=== PATIENT | female | born 1980 | race Caucasian/White ===

== ENCOUNTER 2022-09-21 07:39 | Outpatient (CLI) | payer OTHER ==
[2022-09-21 11:27] LABS: HCT - HEMATOCRIT 36.4 % (37.0-47.0); HGB - HEMOGLOBIN 11.5 g/dL (12.0-16.0); MEAN CORPUSCULAR HEMOGLOBIN 29.9 pg (27.0-31.0); MEAN CORPUSCULAR HGB CONC 31.6 g/dL (32.0-36.0); MEAN CORPUSCULAR VOLUME 94.5 fL (81.0-99.0); MEAN PLATELET VOLUME 10.2 fL (7.9-10.8); RED BLOOD COUNT 3.85 10^6/uL (4.20-5.40); RED CELL DISTRIBUTION WIDTH 13.7 % (12.0-15.0); WHITE BLOOD COUNT 8.6 x10^3/uL (4.8-10.8)
== END 2022-09-21 07:40 | disposition home or self-care (01) ==
LOC: LAB.N 07:39
PROVIDERS: ATTEND Nurse Practitioner
DX: Z87.19 Personal history of other diseases of the digestive system (principal)
CPT/HCPCS: 36415; 82239; 85027

== ENCOUNTER 2022-10-11 19:58 | Outpatient (CLI) | payer OTHER ==
--- NOTE | 2022-10-13 07:07 | Ultrasound Report ---
PROCEDURE: OB Detailed Eval INDICATIONS: ROUTINE OUTSIDE/PRIOR DATING DATA: Last menstrual period (LMP): Unsure. First dating scan (date and location): Outside in [place], 05/08/2022. Documentation is not available. TECHNIQUE: Real-time scanning was performed of the fetus, with image documentation and biometric measurements. COMPARISON: None FINDINGS: General: A single living intrauterine gestation is present. Presentation: Vertex Placenta: Placental position is posterior, without previa. Amniotic fluid index: 13.8 cm, within normal limits for gestational age. heart rate: 171 beats per minute. Maternal cervical canal: 5 cm long; normal length is 2.5 cm or more. biometrics: Biparietal diameter: 7.4 cm, 29 weeks and 6 days Head circumference: 27.7 cm, 30 weeks and 2 days Abdominal circumference: 25.1 cm, 29 weeks and 2 days Femur length: 5.5 cm, 29 weeks Estimated gestational age from initial scan: not applicable. Composite gestational age from present scan: 29 weeks and 3 days, estimated weight of 1380g Measurement variability in biometric dating: +/- 10 days from 12-20 weeks gestation, +/- 2 weeks from 20-30 weeks gestation, +/- 3 weeks at 30 weeks gestation or later. Anatomic survey: Neuro: Ventricles are normal at less than 10 mm. Cisterna magna is normal at 3-11 mm. Cerebellum is normal in size and morphology. Nuchal skin fold: Not applicable Face: Nose and lips, facial profile are normal. Spine: No evidence for spina bifida. Heart: 4-chambered heart is present, with normal ventricular outflow tracts. Diaphragm: Diaphragm is intact. Stomach: Left-sided stomach is present. Kidneys: No hydronephrosis. Normal is less than 5 mm in 2nd trimester, less than 7 mm in 3rd trimester. Cord: 3 vessel cord has orthotopic insertion. Bladder: Normal in size. Extremities: All 4 extremities are visualized. IMPRESSION: Single living intrauterine gestation. Please note first dating scan is outside of the country and rep ort is not available. biometry today measures 29 weeks and 3 days, 1380 g. Addendum with calcul ation of growth percentile could be made if a signed report is available in the future. Normal and complete anatomic survey. Reviewed by: Tremayne Mcbride MD on 10/12/2022 12:26 PM PDT Approved by: Termayne Mcbride MD on 10/12/2022 12:26 PM PDT Station ID: [id number]
== END 2022-10-11 19:59 | disposition home or self-care (01) ==
LOC: DI 19:58
PROVIDERS: ATTEND Nurse Practitioner
DX: Z34.03 Encounter for supervision of normal first pregnancy, third trimester (principal); Z36.89 Encounter for other specified antenatal screening

== ENCOUNTER 2022-10-25 14:00 | Outpatient (CLI) | payer OTHER ==
--- NOTE | 2022-10-25 15:27 | PROVIDER PROGRESS NOTE ---
- HPI Current : Current [facility] 01/05/23 Gestation 29 Weeks and 5 Days 2 Para 1 Vital Signs Temperature 98.1 F 10/25/22 14:15 Heart Rate 80 10/25/22 14:15 Respiratory Rate 16 10/25/22 14:15 Blood Pressure 111/66 10/25/22 14:15 Temperature 98.1 F 10/25/22 14:15 Heart Rate 80 10/25/22 14:15 Respiratory Rate 16 10/25/22 14:15 Blood Pressure 111/66 10/25/22 14:15 O2 Saturation If not protocol: Oxygen Flow, liters/minute - Procedures OB Procedure Performed: NST Diagnosis/Indication for NST: labor NST Procedure: NST Procedure Start Date 10/25/22 Start Time 14:12 Stop Time 14:42 Vibroacoustic Stimulation Used No Patient States Movement Yes Service Date of procedure: 10/25/22 (Read 10/25/22) Procedure Details: FHT: 140 bpm baseline, moderate variability, accelerations present, no decelerations. Reactive NST [place]: Rare - Plan Plan: Patient is a 42-year-old at 29 weeks 5 days gestation presenting to triage for cramping. She has good movement, no leaking, no vaginal bleeding. She denies headache, right upper quadrant pain, changes in vision. complicated by previous section. Physical Exam Constitutional: alert, no acute distress, well hydrated, well developed, well nourished, appropriate dress. Cardiovascular: Regular rate and rhythm. Respiratory: no respiratory distress. Abdomen: nondistended, nontender, no guarding. Psych: affect and mood appropriate, normal interaction, good eye contact. : Moderate thin white discharge. SVE: 0/0/-3 UA: Unremarkable Vaginitis panel: Unremarkable. Assessment and plan 42-year-old at 29 weeks 5 days gestation with cramping 1. Cramping -Rare contraction seen on tocometer. Cervix closed. Offered recheck, but patient declined. Encouraged low threshold for return if contractions worsened. 2. Vaginal discharge. -Negative vaginosis panel.
[2022-10-25 15:43] LABS: BILIRUBIN,URINE NEGATIVE (NEGATIVE); GLUCOSE, URINE (UA) NEGATIVE (NEGATIVE); KETONES,URINE (UA) NEGATIVE (NEGATIVE); LEUKOCYTE ESTERASE, URINE NEGATIVE (NEGATIVE); NITRITE,URINE NEGATIVE (NEGATIVE); OCCULT BLOOD,URINE NEGATIVE (NEGATIVE); PH,URINE 6.5 PH (5.0-7.5); PROTEIN,URINE NEGATIVE (NEGATIVE); UROBILINOGEN,URINE 1 (NORMAL) E.U./dL (NORMAL)
[2022-10-25 15:44] LABS: CLARITY,URINE CLEAR (CLEAR)
[2022-10-25 15:58] LABS: BACTERIA,URINE Few /HPF (None Seen); RBC,URINE None Seen /HPF (0-5); SQUAMOUS EPITHELIAL CELL,UR FEW Squamous (<= Few); WBC,URINE 0-3 /HPF (0-5)
[2022-10-25 16:39] VITALS: BP 106/60
[2022-10-25 17:02] LABS: BACTERIAL VAGINOSIS DNA NEGATIVE (NEGATIVE); CANDIDA KRUSEI DNA NEGATIVE (NEGATIVE)
[2022-10-25 17:03] LABS: CANDIDA GLABRATA DNA NEGATIVE (NEGATIVE); CANDIDA GROUP DNA NEGATIVE (NEGATIVE); TRICHOMONAS VAGINALIS DNA NEGATIVE (NEGATIVE)
== END 2022-10-25 16:30 | disposition home or self-care (01) ==
LOC: FBP 14:00 → UNDOADMOB 14:00 → WFO 14:00 → UNDODISOB 16:30 → WFO 16:30
PROVIDERS: ATTEND Obstetrics & Gynecology
DX: O99.891 Other specified diseases and conditions complicating pregnancy (principal); R10.9 Unspecified abdominal pain; N89.8 Other specified noninflammatory disorders of vagina; Z3A.29 29 weeks gestation of pregnancy
CPT/HCPCS: 59025; 81001; 81514; 87086; 99213; 99214

== ENCOUNTER 2022-11-13 07:13 | Outpatient (CLI) | payer OTHER | END 2022-11-13 07:14 | disposition home or self-care (01) | LOC: LAB.N 07:13 | PROVIDERS: ATTEND Nurse Practitioner | DX: O09.523 Supervision of elderly multigravida, third trimester (principal); O99.013 Anemia complicating pregnancy, third trimester; D64.9 Anemia, unspecified; Z36.89 Encounter for other specified antenatal screening | CPT/HCPCS: 36415; 82728; 82950; 86787; 86803; 86850 ==

== ENCOUNTER 2022-11-22 11:57 | Outpatient (CLI) | payer OTHER ==
[2022-11-22 12:37] LABS: ALBUMIN 3.2 g/dL (3.2-5.5); ALBUMIN/GLOBULIN RATIO 0.9 (1.0-2.2); BILIRUBIN,TOTAL 0.6 mg/dL (0.2-1.0); CALCIUM 8.8 mg/dL (8.5-10.3); CREATININE 0.5 mg/dL (0.4-1.0); POTASSIUM 3.6 mmol/L (3.5-5.0); TOTAL PROTEIN 6.6 g/dL (6.7-8.2)
[2022-11-23 06:10] LABS: HCV AB Non Reactive (Non Reactive)
== END 2022-11-22 11:58 | disposition home or self-care (01) ==
LOC: LAB 11:57
PROVIDERS: ATTEND Nurse Practitioner
DX: O09.523 Supervision of elderly multigravida, third trimester (principal); O26.893 Other specified pregnancy related conditions, third trimester; L29.9 Pruritus, unspecified
CPT/HCPCS: 36415; 80053; 82239; 86787; 86803; 86850

== ENCOUNTER 2022-11-27 13:53 | Outpatient (CLI) | payer OTHER ==
[2022-11-28 02:07] LABS: HBsAG SCREEN Negative (Negative); HCV AB Non Reactive (Non Reactive); HEPATITIS B CORE IGM AB Negative (Negative)
== END 2022-11-27 13:54 | disposition home or self-care (01) ==
LOC: LAB 13:53
PROVIDERS: ATTEND Obstetrics & Gynecology
DX: K83.1 Obstruction of bile duct (principal); R74.01 Elevation of levels of liver transaminase levels
CPT/HCPCS: 80074; 82239

== ENCOUNTER 2022-11-28 15:02 | Outpatient (CLI) | payer OTHER ==
[2022-11-28 15:20] VITALS: BP 110/70
[2022-11-28 15:38] LABS: ALBUMIN/GLOBULIN RATIO 0.9 (1.0-2.2); BILIRUBIN,TOTAL 0.6 mg/dL (0.2-1.0); CREATININE 0.5 mg/dL (0.4-1.0); POTASSIUM 3.9 mmol/L (3.5-5.0); TOTAL PROTEIN 6.2 g/dL (6.7-8.2)
--- NOTE | 2022-11-28 21:28 | PROCEDURE REPORT ---
- HPI Diagnosis/Indication for NST: Other (Cholestasis of ) Current EDU 01/05/23 Gestation 34 Weeks and 4 Days 2 Para 1 Vital Signs Temperature 97.9 F 11/28/22 15:16 Heart Rate 75 11/28/22 15:16 Respiratory Rate 16 11/28/22 15:16 Blood Pressure 110/70 11/28/22 15:16 O2 Saturation 100 11/28/22 15:16 Temperature 97.9 F 11/28/22 15:16 Heart Rate 75 11/28/22 15:16 Respiratory Rate 16 11/28/22 15:16 Blood Pressure 110/70 11/28/22 15:16 O2 Saturation 100 11/28/22 15:16 If not protocol: Oxygen Flow, liters/minute - NST Procedure NST Procedure Start Date 11/28/22 Start Time 15:13 Stop Time 17:10 Vibroacoustic Stimulation Used No Patient States Movement Yes EFM: 130s, moderate variability, positive 15x15 accelerations, no decelerations [place]: contractions q10m, not appreciated by patient NST reactive/Cat 1 Performed and read 11/28/22 - Results and Plan Plan: 42yo at 34.4w presenting for scheduled NST for cholestasis of - Dx last week 11/22/22. She did have cholestasis prior requiring delivery at 35w - LFTs also elevated - Continue NST 2x/w, follow up 3d - Repeat LFT and Bile acids next NST - Plan for betamethasone 1w if no improvement in LFTs - Discussed with MFM. Plan for delivery 36w if LFTs continue to worsen or earlier prn - Continue ursodiol 300mg TID
== END 2022-11-28 17:19 | disposition home or self-care (01) ==
LOC: WFO 15:02 → FBP 15:03 → WFO 17:19
PROVIDERS: ATTEND Obstetrics & Gynecology
DX: O26.613 Liver and biliary tract disorders in pregnancy, third trimester (principal); Z3A.34 34 weeks gestation of pregnancy
CPT/HCPCS: 36415; 59025; 80053; 99213

== ENCOUNTER 2022-12-01 08:09 | Outpatient (CLI) | payer OTHER ==
[2022-12-01 08:33] VITALS: BP 110/64
[2022-12-01 08:42] LABS: BASOPHILS % (AUTO) 0.2 %; EOSINOPHILS # (AUTO) 0.2 10^3/uL (0.0-0.7); EOSINOPHILS % (AUTO) 3.5 %; HCT - HEMATOCRIT 34.4 % (37.0-47.0); HGB - HEMOGLOBIN 11.5 g/dL (12.0-16.0); LYMPHOCYTES % (AUTO) 16.7 %; MEAN CORPUSCULAR HGB CONC 33.4 g/dL (32.0-36.0); MEAN CORPUSCULAR VOLUME 92.7 fL (81.0-99.0); MEAN PLATELET VOLUME 10.6 fL (7.9-10.8); MONOCYTES # (AUTO) 0.4 10^3/uL (0.0-1.0); MONOCYTES % (AUTO) 6.4 %; NEUTROPHILS # (AUTO) 4.5 10^3/uL (1.5-6.6); NEUTROPHILS % (AUTO) 72.7 %; PLT - PLATELET COUNT 217 10^3/uL (130-450); RED BLOOD COUNT 3.71 10^6/uL (4.20-5.40); RED CELL DISTRIBUTION WIDTH 13.2 % (12.0-15.0); WHITE BLOOD COUNT 6.2 x10^3/uL (4.8-10.8)
[2022-12-01 08:55] LABS: BILIRUBIN,TOTAL 0.8 mg/dL (0.2-1.0); CALCIUM 8.8 mg/dL (8.5-10.3); CREATININE 0.5 mg/dL (0.4-1.0); POTASSIUM 3.6 mmol/L (3.5-5.0); TOTAL PROTEIN 6.1 g/dL (6.7-8.2)
[2022-12-01 08:58] LABS: CREATININE,URINE 134.7 mg/dL; PROTEIN/CREATININE RATIO,URINE 0.1 (<=0.2)
[2022-12-01] MEDS ORDERED: BETAMETHASONE 30 MG/5 ML VIAL IM ONE (09:22)
--- NOTE | 2022-12-01 20:17 | PROCEDURE REPORT ---
- HPI Diagnosis/Indication for NST: Other (Cholestasis of ) Current EDU 01/05/23 Gestation 35 Weeks and 0 Days 2 Para 1 Vital Signs Temperature 97.9 F 12/01/22 08:30 Heart Rate 72 12/01/22 08:30 Respiratory Rate 14 12/01/22 08:30 Blood Pressure 110/64 12/01/22 08:30 Temperature 97.9 F 12/01/22 08:30 Heart Rate 72 12/01/22 08:30 Respiratory Rate 14 12/01/22 08:30 Blood Pressure 110/64 12/01/22 08:30 O2 Saturation If not protocol: Oxygen Flow, liters/minute - NST Procedure NST Procedure Start Date 12/01/22 Start Time 08:22 Stop Time 09:13 Vibroacoustic Stimulation Used No Patient States Movement Yes EFM: 150s, moderate variability, positive 15x15 accelerations, no decelerations [place]: occasional contractions NST reactive/Cat 1 Performed and read 12/01/22 - Results and Plan Plan: 42yo at 35w presents for scheduled NST for cholestasis of - NST reactive - PCR 0.1, no concurrent preeclampsia currently - LFTs stable AST 55(85) ALT 123(158) - Bile acids increased 11/22 116(21.6) - Reviewed with MFM, plan for delivery 36w - Continue ursodiol 300mg TID - Betamethasone now, second dose tomorrow
== END 2022-12-01 09:45 | disposition home or self-care (01) ==
LOC: WFO 08:09 → FBP 08:12 → WFO 09:45
PROVIDERS: ATTEND Obstetrics & Gynecology
DX: O26.613 Liver and biliary tract disorders in pregnancy, third trimester (principal); K83.1 Obstruction of bile duct; O09.523 Supervision of elderly multigravida, third trimester; Z3A.35 35 weeks gestation of pregnancy
CPT/HCPCS: 36415; 59025; 80053; 82239; 82570; 84156; 85025; 96372

== ENCOUNTER 2022-12-02 09:32 | Outpatient (CLI) | payer OTHER ==
[2022-12-02] MEDS ORDERED: BETAMETHASONE 30 MG/5 ML VIAL IM ONE (09:39)
[2022-12-02 09:56] VITALS: BP 112/74
--- NOTE | 2022-12-02 10:29 | PROCEDURE REPORT ---
- HPI Diagnosis/Indication for NST: Other Vital Signs Temperature 98.1 F 12/02/22 09:41 Heart Rate 71 12/02/22 09:41 Respiratory Rate 16 12/02/22 09:41 Blood Pressure 112/74 12/02/22 09:41 Temperature 98.1 F 12/02/22 09:41 Heart Rate 71 12/02/22 09:41 Respiratory Rate 16 12/02/22 09:41 Blood Pressure 112/74 12/02/22 09:41 O2 Saturation If not protocol: Oxygen Flow, liters/minute - NST Procedure NST Procedure Start Time 08:22 Stop Time 09:13 EFM: 150s, moderate variability, positive 15x15 accelerations, no decelerations [place]: no contractions NST reactive/Cat 1 Performed and read 12/02/22 - Results and Plan Plan: 42yo at 35w presents for scheduled NST and betamethasone IM for cholestasis of - NST reactive - Betamethasone second dose given today for planned RCD at 36w for cholestasis of - Continue ursodiol 300mg TID - Discharge to home, follow up NST 3d
== END 2022-12-02 10:40 | disposition home or self-care (01) ==
LOC: WFO 09:32 → FBP 09:33 → WFO 10:40
PROVIDERS: ATTEND Obstetrics & Gynecology
DX: O26.613 Liver and biliary tract disorders in pregnancy, third trimester (principal); K83.1 Obstruction of bile duct; O09.523 Supervision of elderly multigravida, third trimester; Z3A.35 35 weeks gestation of pregnancy
CPT/HCPCS: 59025; 96372

== ENCOUNTER 2022-12-05 10:33 | Outpatient (CLI) | payer OTHER ==
[2022-12-05 10:59] VITALS: BP 102/62
[2022-12-05 11:10] LABS: ALBUMIN 3.1 g/dL (3.2-5.5); BILIRUBIN,TOTAL 0.5 mg/dL (0.2-1.0); CREATININE 0.4 mg/dL (0.4-1.0); POTASSIUM 3.5 mmol/L (3.5-5.0); TOTAL PROTEIN 6.3 g/dL (6.7-8.2)
--- NOTE | 2022-12-05 13:14 | Ultrasound Report ---
PROCEDURE: OB Biophysical Profile INDICATIONS: non reactive NST OUTSIDE/PRIOR DATING DATA: Last menstrual period (LMP): Unknown. LMP-based estimated date of delivery (CONNOR): Unknown. First dating scan (date and location): 05/08/2022. Estimated date of delivery (CONNOR) from first dating scan: 01/05/2023. The below data below was generated using the working CONNOR of 01/05/2023 TECHNIQUE: Real-time scanning was performed of the fetus, with image documentation. Biophysical pro file was also obtained. Endovaginal scanning: Not indicated COMPARISON: 10/11/2022. FINDINGS: General: A single living intrauterine gestation is present. Presentation: Vertex Placenta: Placental position is posterior, without previa. Amniotic fluid index: 11.1 cm, normal for gestational age. heart rate: 145 beats per minute. Maternal cervical canal: 4.6 cm long; normal length is 2.5 cm or more. Estimated gestational age from initial scan: 35 weeks, 4 days.. Biophysical profile: Tone: 2 points. Movement: 2 points. Respiration: 2 points. Largest pocket of fluid: 2 points. Umbilical artery Doppler: 2.12, 2.22, 2.35 IMPRESSION: 1. Single live intrauterine gestation with fetus in vertex presentation. heart rate is 145 bpm. Normal amount of amniotic fluid. 2. biophysical profile score is 8 out of 8. 3. Normal umbilical artery S/D ratio. Reviewed by: Jono De Jesus MD on 12/05/2022 1:13 PM PDT Approved by: Jono De Jesus MD on 12/05/2022 1:13 PM PDT Station ID: [id number]
--- NOTE | 2022-12-05 14:37 | PROCEDURE REPORT ---
- HPI Diagnosis/Indication for NST: Other (Intrahepatic cholestasis of ) Current EDU 01/03/23 Gestation 35 Weeks and 6 Days 2 Para 1 Vital Signs Temperature 98.2 F 12/05/22 10:48 Heart Rate 68 12/05/22 10:48 Respiratory Rate 16 12/05/22 10:48 Blood Pressure 102/62 12/05/22 10:48 Temperature 98.2 F 12/05/22 10:48 Heart Rate 68 12/05/22 10:48 Respiratory Rate 16 12/05/22 10:48 Blood Pressure 102/62 12/05/22 10:48 O2 Saturation If not protocol: Oxygen Flow, liters/minute - NST Procedure NST Procedure Start Date 12/05/22 Start Time 10:50 Stop Time 10:14 Patient States Movement Yes - Results and Plan Plan: Patient is a 42-year-old at 35 weeks 4 days gestation here for scheduled NST. NST Performed 12/05/2022 NST Read 12/05/22 FHT: 145 bpm baseline, moderate variability, accelerations present, no decelerations. Reactive NST [place]: Rare BPP 02/13 Diagnosis 35 weeks gestation Intrahepatic cholestasis of -patient had period of minimal variability, and subsequent BPP was reassuring. She had a meal and snack and variability normalized. Continue with twice weekly NST.
== END 2022-12-05 13:40 | disposition home or self-care (01) ==
LOC: WFO 10:33 → FBP 10:35 → WFO 13:40
PROVIDERS: ATTEND Obstetrics & Gynecology Obstetrics
DX: O26.613 Liver and biliary tract disorders in pregnancy, third trimester (principal); K83.1 Obstruction of bile duct; Z3A.35 35 weeks gestation of pregnancy; O09.523 Supervision of elderly multigravida, third trimester
CPT/HCPCS: 36415; 59025; 80053; 99215

== ENCOUNTER 2022-12-06 08:00 | Outpatient (CLI) | payer OTHER | END 2022-12-06 23:59 | disposition home or self-care (01) | LOC: LAB 08:00 | PROVIDERS: ATTEND Obstetrics & Gynecology | DX: Z36.85 Encounter for antenatal screening for Streptococcus B (principal) | CPT/HCPCS: 87797 ==

== ENCOUNTER 2022-12-07 10:59 | Outpatient (CLI) | payer OTHER ==
[2022-12-07 11:20] VITALS: BP 112/65
--- NOTE | 2022-12-07 11:42 | PROCEDURE REPORT ---
- HPI Current EDU 01/05/23 Gestation 35 Weeks and 6 Days 2 Para 1 Vital Signs Temperature 98.2 F 12/07/22 11:12 Heart Rate 79 12/07/22 11:12 Respiratory Rate 16 12/07/22 11:12 Blood Pressure 112/65 12/07/22 11:12 Temperature 98.2 F 12/07/22 11:12 Heart Rate 79 12/07/22 11:12 Respiratory Rate 16 12/07/22 11:12 Blood Pressure 112/65 12/07/22 11:12 O2 Saturation If not protocol: Oxygen Flow, liters/minute - NST Procedure NST Procedure Start Date 12/07/22 Start Time 11:11 Stop Time 13:30 Vibroacoustic Stimulation Used Yes Patient States Movement Yes: decreased - Results and Plan Plan: Patient is a 42-year-old -0-0-1 at 35 weeks 6 days gestation here for scheduled NST. NST Performed 12/07/2022 NST Read 12/07/2022 FHT: 140 bpm baseline , moderate variability, accelerations present, no decelerations. Reactive NST [place]: Irregular Diagnosis 35 weeks gestation Intrahepatic cholestasis of Plan for scheduled section tomorrow.
== END 2022-12-07 12:30 | disposition home or self-care (01) ==
LOC: WFO 10:59 → FBP 11:02 → WFO 12:30
PROVIDERS: ATTEND Obstetrics & Gynecology
DX: O26.613 Liver and biliary tract disorders in pregnancy, third trimester (principal); Z3A.35 35 weeks gestation of pregnancy
CPT/HCPCS: 59025

== ENCOUNTER 2022-12-08 05:30 | Inpatient (IN) | payer OTHER ==
[2022-12-08] MEDS ORDERED: ceFAZolin 2 GM in SODIUM CHLORIDE 0.9% 100ML 100 ML IV STA (06:33)
[2022-12-08] MEDS ORDERED: CELECOXIB 100 MG CAPSULE PO ONE (06:35)
--- NOTE | 2022-12-08 06:37 | HISTORY & PHYSICAL EXAMINATION ---
Admit History - : 2 Parity: 1 Risk/History: positive: Previous , Other (Intrahepatic cholestasis of ) - Mother's Labs Mother's Blood Type: positive: O Mother's RH: positive: Positive GBS: positive: Group B Strep Positive, Group B Step Negative Rubella Status: positive: Immune - Other Maternal History Other Maternal History: HPI: Patient is a 42-year-old -0-0-1 at 36 weeks 0 days gestation here for repeat section. She has good movement. Denies loss of fluid. No ESQUIVEL/BV or RUQP. No vaginal bleeding. Denies nausea and vomiting. Denies urinary urgency or dysuria. All other symptoms reviewed and were negative except per HPI. Course LMP: 03/31/2022 (Updated from previous after reviewing her records) CONNOR by LMP: 01/05/2023 Initial U/S: 06/05/2022 (in [place]) 9+6 weeks c/w LMP Final CONNOR: 01/05/2023 by LMP consistent with 9-week ultrasound Problems: Intrahepatic cholestasis of : Per patient, 35-week delivery via section. Currently bile acids of 75. Peaked at 116. NST/BPP ordered. Daily kick counts. Ursodiol 300mg TID has improved itching. Pre- weight: 150 BMI: 22.89 Blood Type: O+ Rubella: IMMUNE VZV: immune Genetic testing: declines FAS: WNL EFW%- unable to calculate as this is baseline exam, plan 3rd trimester growth scan. 3 VC Posterior HEIDI WNL Glucola: 150 - profiling Influenza: declines COVID: initals and boosters confirmed TDAP: 10/16/22 GBS: Positive HSV: denies Breast Pump Rx: 10/16/22 MOD: plans for r/p c/s at 37 weeks pap: summer 2021, normal, denies hx of abnormal Initial GC/CT: 06/20/2022 negative PMH Intermatic cholestasis of Anemia PSH section: 2013 OB History -0-0-1 1. 2013, section, male, 35 weeks, cholestasis. SH Denies tobacco, alcohol, drugs Family History Mother: Heart disease, high cholesterol Paternal grandmother: Diabetes Aunt: Diabetes Allergies No known drug allergies Medications vitamins Ursodiol 30 mg 3 times daily Hydroxyzine 25 mg as needed Physical exam: General: Alert, oriented, no acute distress Head: Normal cephalic atraumatic Eyes: PERRLA, extraocular motions intact. Respiratory: Normal rate of respiration. No accessory muscle use, normal respiratory effort. Cardiovascular: Regular rate and rhythm Abdomen: Gravid, nontender, nondistended Extremities: Normal range of motion Neuro: Oriented x3. Normal movements Psych: Appropriate mood and affect. Normal judgment and insight FHT: 140 bpm baseline, moderate variability, accelerations present, no decelerations. Reactive NST [place]: Irregular Plan 42-year-old -0-0-1 at 36 weeks 0 days gestation here for repeat low-transverse section secondary to traumatic cholestasis of 1. Intermatic cholestasis of -Plan for section. Patient received steroids within 1 week. -ERAS medications, 2 g cefazolin, - section was recommended. Risks, benefits and alternatives were discussed including but not limited to infection, bleeding that may require blood products or hysterectomy for life saving measures, injury to surrounding organs including but not limited to bowel, bladder, ureters, tubes and ovaries and/or the baby. Should injury occur it could require longer/additional surgery to repair. The patient stated understanding and desired to proceed. All questions were answered posed by patient. 2. 36 weeks gestation -Peds present for delivery. Discussed possibility of difficulty transitioning and supplemental oxygen requirements 3. Previous left previous low-transverse section Meds/Allgy - Allergies Allergies/Adverse Reactions: Allergies Allergy/AdvReac Type Severity Reaction Status Date / Time No Known Drug Allergies Allergy Verified 10/25/22 14:44 Physical - Abdominal Exam Vital Signs: Temp Pulse Resp BP Pulse Ox O2 Flow Rate 97.9 F 82 16 110/82 H 100 12/08/22 05:58 12/08/22 05:58 12/08/22 05:58 12/08/22 05:58 12/08/22 05:58 Plan for Labor - Plan For Labor I expect patient to be DC'd or transferred within 96 hours.: Yes
--- NOTE | 2022-12-08 06:42 | ANESTHESIA ---
Pre-Anesthesia VS, & Labs - Diagnosis previous c/s, cholestasis - Procedure repeat c/s Vital Signs: Temp Pulse Resp BP Pulse Ox O2 Flow Rate 36.6 C 82 16 110/82 H 100 12/08/22 05:58 12/08/22 05:58 12/08/22 05:58 12/08/22 05:58 12/08/22 05:58 Height: 5 ft 8 in - Is Patient ?: Yes - Lab Results Lab results reviewed: Yes Fish Bones: 12/08/22 06:40 Home Medications and Allergies Active Medications Acetaminophen (Acetaminophen 500 Mg Tablet) 1,000 mg PO ONCE CALRENE Celecoxib (Celecoxib 100 Mg Capsule) 400 mg PO ONCE ONE Stop: 12/08/22 06:36 Gabapentin (Gabapentin 400 Mg Capsule) 800 mg PO ONCE CARLENE Cefazolin Sodium 2 gm/ Sodium (Chloride) 100 mls @ 200 mls/hr IV ONCE STA Stop: 12/08/22 07:02 Allergies/Adverse Reactions: Allergies Allergy/AdvReac Type Severity Reaction Status Date / Time No Known Drug Allergies Allergy Verified 10/25/22 14:44 Anes History & Medical History - Anesthetic History Anesthesia Complications: reports: No previous complications Family history of Anesthesia Complications: Denies Family history of Malignant Hyperthermia: Denies - Medical History Cardiovascular: reports: None Pulmonary: reports: None Gastrointestinal: reports: GERD Skin: reports: None Psychosocial: reports: No issues indicated - Obstetrical History : 2 Parity: 1 Events: reports: Previous , Other (Intrahepatic cholestasis of ) Exam General: Alert, Oriented x3, Cooperative Dental: WNL Mouth Openin Fingerbreadth Neck Mobility: Normal Mallampati classification: II Thyromental Distance: 4-6 cm Respiratory: Lungs clear Cardiovascular: Regular rate Neurological: Normal speech Mental/Cognitive Status: Alert/Oriented X3, Normal for patient Cognitive Status: Within normal limits Plan Anesthesia Type: Spinal Consent for Procedure(s) Verified and Reviewed: Yes Code Status: Attempt Resuscitation ASA classification: 2-Mild systemic disease Is this case an emergency?: No
[2022-12-08] MEDS ORDERED: ePHEDrine 50 MG/ML VIAL IVP ONE (06:52)
[2022-12-08] MEDS ORDERED: OXYTOCIN 10 UNIT/ML VIAL ONE (06:52)
[2022-12-08] MEDS ORDERED: SODIUM CHLORIDE 0.9% 10 ML VIAL IVP ONE (06:52)
[2022-12-08] MEDS ORDERED: MORPHINE PF 5 MG/10 ML VIAL ONE (06:55)
[2022-12-08] MEDS ORDERED: fentaNYL 100 MCG/2 ML VIAL ONE (06:55)
[2022-12-08] MEDS ORDERED: ACETAMINOPHEN 500 MG TABLET PO SCH (07:00)
[2022-12-08] MEDS ORDERED: GABAPENTIN 400 MG CAPSULE PO SCH (07:00)
[2022-12-08 07:04] LABS: BASOPHILS % (AUTO) 0.1 %; EOSINOPHILS # (AUTO) 0.1 10^3/uL (0.0-0.7); EOSINOPHILS % (AUTO) 1.8 %; HCT - HEMATOCRIT 36.2 % (37.0-47.0); HGB - HEMOGLOBIN 12.1 g/dL (12.0-16.0); LYMPHOCYTES # (AUTO) 1.6 10^3/uL (1.5-3.5); LYMPHOCYTES % (AUTO) 20.4 %; MEAN CORPUSCULAR HEMOGLOBIN 30.9 pg (27.0-31.0); MEAN CORPUSCULAR HGB CONC 33.4 g/dL (32.0-36.0); MEAN CORPUSCULAR VOLUME 92.6 fL (81.0-99.0); MEAN PLATELET VOLUME 11.5 fL (7.9-10.8); MONOCYTES # (AUTO) 0.5 10^3/uL (0.0-1.0); MONOCYTES % (AUTO) 6.9 %; NEUTROPHILS # (AUTO) 5.5 10^3/uL (1.5-6.6); NEUTROPHILS % (AUTO) 69.7 %; PLT - PLATELET COUNT 250 10^3/uL (130-450); RED BLOOD COUNT 3.91 10^6/uL (4.20-5.40); RED CELL DISTRIBUTION WIDTH 13.3 % (12.0-15.0); WHITE BLOOD COUNT 7.9 x10^3/uL (4.8-10.8)
[2022-12-08] MEDS ORDERED: LACTATED RINGERS 1,000 ML ONE (07:08)
[2022-12-08] MEDS ORDERED: ATROPINE ABBOJECT 1 MG/10 ML SYRINGE IVP PRN (07:13)
[2022-12-08] MEDS ORDERED: ePHEDrine 50 MG/ML VIAL IVP PRN ×2 (07:13→08:03)
[2022-12-08] MEDS ORDERED: fentaNYL 100 MCG/2 ML VIAL IVP PRN (07:13)
[2022-12-08] MEDS ORDERED: ONDANSETRON 4 MG/2 ML VIAL IVP PRN ×2 (07:13→08:03)
[2022-12-08] MEDS ORDERED: HYDROmorphone 0.5 MG/0.5 ML SYRINGE IVP PRN (07:13)
[2022-12-08] MEDS ORDERED: MORPHINE 2 MG/ML CARPUJECT IVP PRN (07:13)
[2022-12-08] MEDS ORDERED: METOCLOPRAMIDE 10 MG/2 ML VIAL IVP PRN ×2 (07:13→08:03)
[2022-12-08] MEDS ORDERED: NALOXONE 0.4 MG/ML VIAL IVP PRN ×2 (07:13→08:03)
[2022-12-08] MEDS ORDERED: fentaNYL 100 MCG/2 ML VIAL IT ONE (07:54)
[2022-12-08] MEDS ORDERED: MORPHINE PF 5 MG/10 ML VIAL IT ONE (07:54)
[2022-12-08] MEDS ORDERED: LACTATED RINGERS 1,000 ML IV SCH (08:00)
[2022-12-08] MEDS ORDERED: ONDANSETRON 4 MG/2 ML VIAL ONE (08:02)
[2022-12-08] MEDS ORDERED: diphenhydrAMINE INJ 50 MG/ML VIAL IVP PRN (08:03)
[2022-12-08] MEDS ORDERED: NALBUPHINE 10 MG/ML AMP IVP PRN (08:03)
[2022-12-08] MEDS ORDERED: LACTATED RINGERS 1,000 ML IV ONE (08:58)
--- NOTE | 2022-12-08 09:06 | ANESTHESIA POST OP EVALUATION ---
Anesthesia Post Eval - Post Anesthesia Eval Vitals: Last Vital Signs Temp 36.6 C 12/08/22 06:26 Pulse 82 12/08/22 06:26 Resp 16 12/08/22 06:26 BP 110/82 H 12/08/22 06:26 Pulse Ox 100 12/08/22 05:58 O2 Flow Rate CV Function Including HR & BP: Stable Pain Control: Satisfactory Nausea & Vomiting: Negative Mental Status: Baseline Respiratory Status: Airway Patent Hydration Status: Satisfactory Anesthesia Complications: None
[2022-12-08] MEDS ORDERED: SIMETHICONE CHEW 80 MG TABLET PO PRN (09:23)
[2022-12-08] MEDS ORDERED: ONDANSETRON ODT 4 MG TABLET TL PRN (09:23)
[2022-12-08] MEDS ORDERED: oxyCODONE 5 MG TABLET PO PRN (09:23)
[2022-12-08] MEDS ORDERED: SODIUM CHLORIDE FLUSH 0.9% 10 ML SYRINGE IVP PRN (09:23)
[2022-12-08] MEDS ORDERED: OXYTOCIN/SODIUM CHLORIDE 500 ML IV PRN (09:23)
--- NOTE | 2022-12-08 09:49 | OPERATIVE REPORT ---
Operative Report - General Admit Date: 12/08/22 Planned Procedure: Repeat section Pre-Op Diagnosis: intrahepatic cholestasis of Procedure Performed: Repeat section Post Op Diagnosis: Status post repeat low transverse section - Procedure Note Primary Surgeon: Mo Joyce MD Secondary Surgeon: LUC Berman Anesthesia Provider: Presley Sotelo CRNA Anesthesia Technique: Spinal Pathology: None IV Fluids (mL): 1,500 Estimated Blood Loss (mL): 500 Complications: None - Other Other Information/Narrative: Preoperative diagnoses Intrahepatic cholestasis of 36 weeks gestation Previous low-transverse section Postoperative diagnoses Same Status post repeat low-transverse section Delivery of live [place] . section was recommended. Risks, benefits and alternatives were discussed including but not limited to infection, bleeding that may require blood products or hysterectomy for life saving measures, injury to surrounding organs including but not limited to bowel, bladder, ureters, tubes and ovaries and/or the baby. Should injury occur it could require longer/additional surgery to repair. The patient stated understanding and desired to proceed. All questions were answered posed by patient. Prior to being taken to the OR, 2 grams of cefazolin IV was administered. The patient was taken to the operating room where regional anesthesia was found to be adequate. She was then prepared and draped in the usual sterile fashion in the dorsal supine position with a leftward tilt displacing the uterus. [place] was draining to gravity. SCDs were on bilateral lower extremities. A pfannenstiel skin incision was then made with the scalpel and carried through to the underlying layer of fascia. The fascia was incised in the midline and the incision extended laterally with the Bradley scissors. The superior aspect of the facial incision was then grasped with the Joe clamps, elevated and the underlying rectus muscles dissected off sharply. Attention was then turned to the inferior aspect of this incision which in a similar fashion was grasped, elevated with the Joe clamps and the rectus muscle dissected off sharply. The rectus muscles were in the midline. The peritoneum identified, grasped with the pick-ups and entered sharply with the Metzenbaum scissors. The peritoneal incision was then extended superiorly and inferiorly with good visualization of the bladder. The bladder blade was inserted. The vesicouterine peritoneum was identified, grasped with the pick-ups, and entered sharply with Metzenbaum scissors. This incision was then extended laterally and the bladder flap created digitally. The bladder blade was reinserted. The lower uterine segment was identified and a window was noted with minimal tissue of the lower uterine segment, and incised in a transverse fashion with the scalpel. The uterine incision was then extended bluntly laterally. Artificial rupture of membranes demonstrated clear fluid. The bladder blade was removed. The fetus was in a cephalic presentation. The infants head delivered atraumatically. The anterior shoulders were delivered followed by the posterior shoulders then the remainder of the body. The infants mouth and nose were bulb suctioned. The umbilical cord was clamped times two and cut. The was handed to the pediatric team. A knot was noted in the umbilical cord. The placenta was removed with gentle traction. Oxytocin were added to IVF and allowed to run freely. The uterus was exteriorized and cleared of all clots and debris. The uterine incision was inspected and found to be without any extensions and was repaired with 0 Vicryl in a running, locked fashion. A second imbricating layer was performed. Upon inspection, the repaired hysterotomy was found to be hemostatic. The uterus was firm and returned to the abdomen. The gutters were cleared of all clots and debris. The fascia was reapproximated with 0 Vicryl in a running fashion. The subcutaneous tissue was closed with 2-0 Vicryl. The skin was closed in a subcuticular fashion with 4-0 Monocryl. The patient tolerated the procedure well. Sponge, lap and needle counts were correct times three. The patient was taken to the recovery room in stable condition. I appreciate the assistance of LUC Berman during this procedure, and the assistance in retraction, visualization, dissection, and overall assistance during the case were instrumental to the patient's wellbeing. Patient should be managed very cautiously next due to the very thin lower uterine segment and is at high risk for rupture.
[2022-12-08] MEDS: KETOROLAC 30 MG/ML VIAL IVP SCH ×3 (10:35→22:32)
[2022-12-08] MEDS: LACTATED RINGERS 1,000 ML IV SCH (10:35)
[2022-12-08] MEDS: ACETAMINOPHEN 500 MG TABLET PO SCH ×2 (15:16→23:19)
[2022-12-08] MEDS: SODIUM CHLORIDE FLUSH 0.9% 10 ML SYRINGE IVP SCH (22:33)
[2022-12-08] MEDS: DOCUSATE SODIUM 100 MG CAPSULE PO SCH (23:20)
[2022-12-09] MEDS: LACTATED RINGERS 1,000 ML IV SCH (05:02)
[2022-12-09 05:03] LABS: BASOPHILS % (AUTO) 0.2 %; EOSINOPHILS # (AUTO) 0.2 10^3/uL (0.0-0.7); EOSINOPHILS % (AUTO) 1.8 %; HCT - HEMATOCRIT 33.7 % (37.0-47.0); HGB - HEMOGLOBIN 11.1 g/dL (12.0-16.0); LYMPHOCYTES # (AUTO) 1.2 10^3/uL (1.5-3.5); LYMPHOCYTES % (AUTO) 11.7 %; MEAN CORPUSCULAR HEMOGLOBIN 30.8 pg (27.0-31.0); MEAN CORPUSCULAR HGB CONC 32.9 g/dL (32.0-36.0); MEAN CORPUSCULAR VOLUME 93.6 fL (81.0-99.0); MEAN PLATELET VOLUME 11.1 fL (7.9-10.8); MONOCYTES # (AUTO) 0.6 10^3/uL (0.0-1.0); MONOCYTES % (AUTO) 5.4 %; NEUTROPHILS # (AUTO) 8.3 10^3/uL (1.5-6.6); NEUTROPHILS % (AUTO) 80.3 %; PLT - PLATELET COUNT 209 10^3/uL (130-450); RED CELL DISTRIBUTION WIDTH 13.4 % (12.0-15.0); WHITE BLOOD COUNT 10.3 x10^3/uL (4.8-10.8)
[2022-12-09] MEDS: SODIUM CHLORIDE FLUSH 0.9% 10 ML SYRINGE IVP SCH (05:10)
[2022-12-09] MEDS: KETOROLAC 30 MG/ML VIAL IVP SCH (05:40)
[2022-12-09] MEDS: ACETAMINOPHEN 500 MG TABLET PO SCH ×3 (07:41→23:58)
[2022-12-09] MEDS: DOCUSATE SODIUM 100 MG CAPSULE PO SCH ×2 (08:40→22:10)
--- NOTE | 2022-12-09 09:39 | PROVIDER PROGRESS NOTE ---
Subjective - Subjective Subjective: feels well. up to void. baby doing well. no concerns. Objective - Vital Signs/Intake & Output Vital Signs: Vital Signs x48h Temp Pulse Resp BP Pulse Ox 12/09/22 08:00 97.7 F 63 16 108/70 100 12/09/22 05:45 97.7 F 59 L 16 109/72 99 Intake & Output: Intake & Output 12/06/22 12/07/22 12/08/22 12/09/22 23:59 23:59 23:59 23:59 Intake Total 2725.00 240 Output Total 935 1100 Balance 1790.00 -860 - Objective General Appearance: positive: No acute distress, Alert Respiratory: positive: No respiratory distress Abdomen: positive: No distention, Other (appropriately tender. bandage dry.) Extremities: positive: Non-tender, Nml appearance, No pedal edema - Lab Results Fish Bones: 12/09/22 04:36 Other Labs: Lab Results x24hrs 12/09/22 Range/Units 04:36 WBC 10.3 (4.8-10.8) x10^3/uL RBC 3.60 L (4.20-5.40) 10^6/uL Hgb 11.1 L (12.0-16.0) g/dL Hct 33.7 L (37.0-47.0) % MCV 93.6 (81.0-99.0) fL MCH 30.8 (27.0-31.0) pg MCHC 32.9 (32.0-36.0) g/dL RDW 13.4 (12.0-15.0) % Plt Count 209 (130-450) 10^3/uL MPV 11.1 H (7.9-10.8) fL Neut # (Auto) 8.3 H (1.5-6.6) 10^3/uL Lymph # (Auto) 1.2 L (1.5-3.5) 10^3/uL Tripp # (Auto) 0.6 (0.0-1.0) 10^3/uL Eos # (Auto) 0.2 (0.0-0.7) 10^3/uL Baso # (Auto) 0.0 (0.0-0.1) 10^3/uL Absolute Nucleated RBC 0.00 x10^3/uL Nucleated RBC % 0.0 /100WBC Assessment/Plan - Problem List (1) Delivery by section Impression: doing well. no concerns. mom will likely be ready for discharge tomorrow. baby probably Sunday. shower today. bandage off.
[2022-12-09] MEDS ORDERED: IBUPROFEN 600 MG TABLET PO SCH (10:00)
[2022-12-09] MEDS: IBUPROFEN 600 MG TABLET PO SCH ×2 (12:03→18:25)
[2022-12-10] MEDS: IBUPROFEN 600 MG TABLET PO SCH ×2 (00:57→07:13)
[2022-12-10] MEDS: ACETAMINOPHEN 500 MG TABLET PO SCH (09:07)
[2022-12-10] MEDS: DOCUSATE SODIUM 100 MG CAPSULE PO SCH (09:08)
[2022-12-10] MEDS ORDERED: oxyCODONE 5 MG TABLET PO PRN (10:26)
[2022-12-10] MEDS ORDERED: DOCUSATE SODIUM 100 MG CAPSULE PO PRN (10:29)
[2022-12-10] MEDS ORDERED: ACETAMINOPHEN 325 MG TABLET PO PRN (10:30)
[2022-12-10] MEDS ORDERED: ACETAMINOPHEN 500 MG TABLET PO PRN (10:31)
[2022-12-10] MEDS ORDERED: IBUPROFEN 600 MG TABLET PO PRN (10:32)
--- NOTE | 2022-12-10 10:42 | DISCHARGE SUMMARY ---
Discharge Summary Admit Date: 12/08/22 Discharge Date: 12/10/22 Discharging Provider: Porsha Heredia MD Code Status: Attempt Resuscitation Condition at Discharge: Good Discharge Disposition: 01 Home, Self Care - DIAGNOSES Admission Diagnoses: delivery by c section. Discharge Diagnoses with Status of Each Condition: complete without complications - HPI History of Present Illness: admitted for repeat c section at 36 weeks for cholestasis of - HOSPITAL COURSE Hospital Course: c section performed without complication. post op course normal. discharged home pod #2. baby doing great. - ALLERGIES Allergies/Adverse Reactions: Allergies Allergy/AdvReac Type Severity Reaction Status Date / Time No Known Drug Allergies Allergy Verified 10/25/22 14:44 - MEDICATIONS Home Medications: Ambulatory Orders Medication Instructions Recorded Confirmed Ibuprofen [Motrin] 600 mg PO Q6H PRN #30 tab 12/10/22 168/Iron/Folic/Omega3 1 each PO DAILY #90 cap 12/10/22 [One-A-Day -1 Softgel] oxyCODONE [Roxicodone] 5 mg PO Q4-6H PRN #30 tablet 12/10/22 - PHYSICAL EXAM AT DISCHARGE General Appearance: positive: No acute distress Abdomen: positive: Non-tender, Other (wound healing well. steri strips.) - LABS Result Diagrams: 12/09/22 04:36
[2022-12-10 14:14] VITALS: BP 110/74
== END 2022-12-10 15:58 | disposition home or self-care (01) | DRG 786 ==
LOC: FBP 05:30
PROVIDERS: ADMIT Obstetrics & Gynecology; ATTEND Obstetrics & Gynecology
PROC: 10907ZC Drainage of Amniotic Fluid, Therapeutic from Products of Conception, Via Natural or Artificial Opening (ICD-10-PCS; 2022-12-08)
PROC: 10D00Z1 Extraction of Products of Conception, Low, Open Approach (ICD-10-PCS; principal; 2022-12-08 07:30)
DX: O26.62 Liver and biliary tract disorders in childbirth (principal); K83.1 Obstruction of bile duct; O34.211 Maternal care for low transverse scar from previous cesarean delivery; N85.8 Other specified noninflammatory disorders of uterus; O99.824 Streptococcus B carrier state complicating childbirth; Z3A.36 36 weeks gestation of pregnancy; Z37.0 Single live birth
CPT/HCPCS: 36415; 85025; 86850; 86900; 86901; A9270; J2274; J7120

== ENCOUNTER 2023-01-01 11:02 | Outpatient (CLI) | payer OTHER ==
[2023-01-01 11:15] LABS: HCT - HEMATOCRIT 41.8 % (37.0-47.0); HGB - HEMOGLOBIN 13.6 g/dL (12.0-16.0); MEAN CORPUSCULAR HEMOGLOBIN 30.2 pg (27.0-31.0); MEAN CORPUSCULAR HGB CONC 32.5 g/dL (32.0-36.0); MEAN CORPUSCULAR VOLUME 92.9 fL (81.0-99.0); MEAN PLATELET VOLUME 10.2 fL (7.9-10.8); RED BLOOD COUNT 4.5 10^6/uL (4.20-5.40); RED CELL DISTRIBUTION WIDTH 12.5 % (12.0-15.0); WHITE BLOOD COUNT 4.4 x10^3/uL (4.8-10.8)
[2023-01-01 11:27] LABS: ALBUMIN 4.1 g/dL (3.2-5.5); ALBUMIN/GLOBULIN RATIO 1.2 (1.0-2.2); BILIRUBIN,TOTAL 0.6 mg/dL (0.2-1.0); CALCIUM 9.8 mg/dL (8.5-10.3); CREATININE 0.6 mg/dL (0.4-1.0); POTASSIUM 4.1 mmol/L (3.5-5.0); TOTAL PROTEIN 7.4 g/dL (6.7-8.2)
== END 2023-01-01 11:03 | disposition home or self-care (01) ==
LOC: LAB 11:02
PROVIDERS: ATTEND Nurse Practitioner
DX: K83.1 Obstruction of bile duct (principal); N64.59 Other signs and symptoms in breast; N89.8 Other specified noninflammatory disorders of vagina
CPT/HCPCS: 36415; 80053; 82542; 84702; 85027

== ENCOUNTER 2024-01-31 07:06 | Outpatient (CLI) | payer OTHER ==
[2024-01-31 12:06] LABS: BASOPHILS % (AUTO) 0.6 %; EOSINOPHILS # (AUTO) 0.4 10^3/uL (0.0-0.7); EOSINOPHILS % (AUTO) 8.8 %; HCT - HEMATOCRIT 39.9 % (37.0-47.0); HGB - HEMOGLOBIN 12.4 g/dL (12.0-16.0); LYMPHOCYTES # (AUTO) 1.3 10^3/uL (1.5-3.5); LYMPHOCYTES % (AUTO) 26.7 %; MEAN CORPUSCULAR HEMOGLOBIN 29.6 pg (27.0-31.0); MEAN CORPUSCULAR HGB CONC 31.1 g/dL (32.0-36.0); MEAN CORPUSCULAR VOLUME 95.2 fL (81.0-99.0); MEAN PLATELET VOLUME 10.8 fL (7.9-10.8); MONOCYTES # (AUTO) 0.3 10^3/uL (0.0-1.0); MONOCYTES % (AUTO) 6.2 %; NEUTROPHILS # (AUTO) 2.7 10^3/uL (1.5-6.6); NEUTROPHILS % (AUTO) 57.3 %; PLT - PLATELET COUNT 276 10^3/uL (130-450); RED BLOOD COUNT 4.19 10^6/uL (4.20-5.40); RED CELL DISTRIBUTION WIDTH 12.7 % (12.0-15.0); WHITE BLOOD COUNT 4.7 x10^3/uL (4.8-10.8)
[2024-01-31 12:21] LABS: ALBUMIN 4.8 g/dL (3.2-5.5); ALBUMIN/GLOBULIN RATIO 1.8 (1.0-2.2); ALKALINE PHOSPHATASE 55 IU/L (42-121); ALT ALANINE AMINOTRANSFERASE 16 IU/L (10-60); AST ASPARTATE AMINOTRANSFERASE 19 IU/L (10-42); BILIRUBIN,TOTAL 0.5 mg/dL (0.2-1.0); BUN - BLOOD UREA NITROGEN 13 mg/dL (6-20); CALCIUM 9.6 mg/dL (8.5-10.3); CARBON DIOXIDE - CO2 27 mmol/L (21-32); CHLORIDE 104 mmol/L (101-111); CHOL/HDL RATIO 2.9 (<4.4); CHOLESTEROL 203 mg/dL; CREATININE 0.7 mg/dL (0.6-1.3); GFR - MDRD 91 (>89); GLUCOSE 95 mg/dL (74-104); HDL CHOLESTEROL 69 mg/dL; LDL CHOLESTEROL,CALCULATED 122 mg/dL; LDL/HDL RATIO 1.8 (<4.4); POTASSIUM 4.1 mmol/L (3.5-4.5); SODIUM 135 mmol/L (135-145); TOTAL PROTEIN 7.4 g/dL (6.4-8.9); TRIGLYCERIDES 60 mg/dL; VLDL CHOLESTEROL 12 mg/dL
[2024-01-31 12:33] LABS: THYROID STIMULATING HORMONE 2.88 uIU/mL (0.34-5.60)
[2024-01-31 13:37] LABS: ESTIMATED AVERAGE GLUCOSE 108 mg/dL (70-100); HEMOGLOBIN A1c% 5.4 % (4.27-6.07)
== END 2024-01-31 07:07 | disposition home or self-care (01) ==
LOC: LAB.N 07:06
PROVIDERS: ATTEND Family Medicine
DX: G43.009 Migraine without aura, not intractable, without status migrainosus (principal); Z82.49 Family history of ischemic heart disease and other diseases of the circulatory system
CPT/HCPCS: 36415; 80053; 80061; 83036; 83721; 84443; 85025

== ENCOUNTER 2024-04-03 08:00 | Outpatient (CLI) | payer OTHER ==
[2024-04-04 08:58] LABS: FECAL OCCULT BLOOD (FIT) NEGATIVE (NEGATIVE)
== END 2024-04-03 08:01 | disposition home or self-care (01) ==
LOC: LAB.R 08:00
PROVIDERS: ATTEND Family Medicine
DX: Z12.11 Encounter for screening for malignant neoplasm of colon (principal)
CPT/HCPCS: 82274